=== PATIENT | female | born 1995 | race African-American/Black ===

== ENCOUNTER 2017-12-14 14:00 | Outpatient (RCR) | payer OTHER | END 2017-12-20 13:32 | disposition home or self-care (01) | LOC: WSOH 14:00 | DX: S61.205A Unspecified open wound of left ring finger without damage to nail, initial encounter (principal); W26.0XXA Contact with knife, initial encounter; Y93.G1 Activity, food preparation and clean up; Y92.214 College as the place of occurrence of the external cause; Y99.0 Civilian activity done for income or pay ==